=== PATIENT | female | born 1940 | race Caucasian/White ===

== ENCOUNTER → 2017-04-06 | Outpatient (CLI) | payer MEDICARE ==
--- NOTE | 2017-04-06 22:03 | KCIC ---
Bilateral digital screening mammograms: Reason for examination: Routine screening. Comparison is made to previous studies dating back to 11/22/2013. The skin and nipples show no abnormalities. No abnormal axillary lymph nodes are seen. The breast parenchyma shows scattered fibroglandular density. (Breast density: Category B.) There continue to be multiple small nodular densities bilaterally which show no definite change. There are no new dominant masses, suspicious calcifications or architectural distortions. Impression: No evidence of malignancy. Recommend routine screening. BI-RADS Category 2: Benign. "Our facility is accredited by the [employer] Mammography Program." This patient's information has been entered into a reminder system for the patient to be notified with the results of her examination and a target date for the next mammogram. Electronically signed by: Kailyn Choudhary MD (04/06/2017 10:00 PM)
== END | disposition home or self-care (01) ==
LOC: KCIC MAMMO 10:20
PROVIDERS: ATTEND Internal Medicine
DX: Z12.31 Encounter for screening mammogram for malignant neoplasm of breast (principal)
CPT/HCPCS: G0202; 77067

== ENCOUNTER → 2018-02-23 | Outpatient (CLI) | payer MEDICARE | END | disposition home or self-care (01) | LOC: KCIC CT 12:32 | DX: J32.4 Chronic pansinusitis (principal); J34.2 Deviated nasal septum | CPT/HCPCS: 70486 ==

== ENCOUNTER → 2018-03-28 | Outpatient (CLI) | payer MEDICARE ==
[2018-03-28 10:18] LABS: ISTAT CREATININE 0.6 mg/dL (0.6-1.1)
[2018-03-28] MEDS: GADOBUTROL 7.5 MMOL/7.5 ML VIAL IV (10:18)
== END | disposition home or self-care (01) ==
LOC: KCIC MRI 09:21
DX: R93.8 Abnormal findings on diagnostic imaging of other specified body structures (principal)
CPT/HCPCS: 70553; 82565; A9585

== ENCOUNTER → 2019-09-25 | Outpatient (CLI) | payer MEDICARE ==
[~2019-09-25] MED LIST: AMLO5TAB10 PO; LISI-334 PO; OMEP-229 PO; PARO20TA3 PO; SIMV20TA18 PO
--- NOTE | 2019-09-25 16:39 | KCIC ---
Bilateral digital screening mammograms with 3-D tomosynthesis: Reason for examination: Routine screening. Comparison is made to previous studies dated 05/06/2017 and 10/12/2016. Bilateral mammograms in CC and oblique projections were obtained with 2-D imaging and 3-D tomosynthesis imaging on a Siemens Inspiration unit and reviewed on the workstation. Interpretation was made with the benefit of CAD. The skin and nipples show no abnormalities. No abnormal axillary lymph nodes are seen. The breast parenchyma shows scattered fatty and fibroglandular density. (Breast density: Category B.) There continue to be nodular densities in the retroareolar 6:00 a position of the left breast, in the 2:00 B position of the left breast, in the 10:00 C position of the right breast and in the retroareolar 9:00 position of the right breast which are stable. There are no new dominant masses, suspicious calcifications or architectural distortion. Benign calcifications are present. Impression: No evidence of malignancy. Recommend routine screening. BI-RAD Category 2: Benign. "Our facility is accredited by the [employer] Mammography Program." This patient's information has been entered into a reminder system for the patient to be notified with the results of her examination and a target date for the next mammogram. Electronically signed by: Kailyn Choudhary MD (09/25/2019 4:36 PM) [facility]
--- NOTE | 2019-09-26 14:46 | KCIC ---
Bone densitometry - lumbar spine: L1-L4. 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 Dual energy x-ray absorptiometry of the lumbar spine, reveals a bone mineral density of 1.001 gm/cm2. This value is 0.4 standard deviations below the expected young adult normal value (T-score = -0.4 ). At this bone density level, fracture risk is not increased. Bone Densitometry - Hip: Left. Dual energy x-ray absorptiometry of the left femoral neck reveals a bone mineral density of 0.943 gm/cm2. This value is 0 standard deviations above or below the expected young adult normal value (T-score = 0.0 ). At this bone density level, fracture risk is not increased. Impression: 1. Normal bone mineral density of the lumbar spine and hip. Note: Definitions established by the World Health Organization: 1. Normal: T-score is -1.0 or above. 2. Osteopenia: T-score is between -1.0 and -2.5. 3. Osteoporosis: T-score is -2.5 or below. Electronically signed by: Dagoberto Yoo MD (09/26/2019 2:43 PM) [facility]
== END | disposition home or self-care (01) ==
LOC: KCIC DEXA 10:02
PROVIDERS: ATTEND Internal Medicine
DX: Z12.31 Encounter for screening mammogram for malignant neoplasm of breast (principal); E28.39 Other primary ovarian failure; Z78.0 Asymptomatic menopausal state
CPT/HCPCS: 77063; 77067; 77080

== ENCOUNTER → 2020-07-04 | Outpatient (CLI) | payer MEDICARE ==
[~2020-07-04] MED LIST changes: -OMEP-229 PO; +OMEP20CA16 PO
--- NOTE | 2020-07-04 16:35 | RAD ---
EXAM: Triple phase bone scintigraphy. HISTORY: Left knee pain after arthroplasty. FINDINGS: 27 mCi Tc-99m MDP was administered intravenously. Scintigraphic images of the knees were obtained in angiographic, immediate and delayed phases. No plain radiographs are available for comparison. Angiographic images demonstrate symmetric perfusion. Blood pool images demonstrate mild hyperemia about the right greater than left arthroplasties. Delayed images demonstrate increased uptake along the left patella. Uptake along the tibial and patellofemoral compartments are mild. There is increased uptake along the right femoral greater than tibial components. Images of the hips demonstrate a photopenic defect at the right hip consistent with an arthroplasty. There is no abnormal uptake about the arthroplasty. IMPRESSION: 1. Relatively intense uptake about the left patellar and right femoral/tibial components on the delayed images only. No hyperemia to suggest infection. Correlate with plain radiographs to assess for stress lesions or loosening. Electronically signed by: Mann Garcia MD (07/04/2020 4:32 PM) [facility]
== END | disposition home or self-care (01) ==
LOC: NM 11:25
PROVIDERS: ATTEND Orthopaedic Surgery
DX: M16.12 Unilateral primary osteoarthritis, left hip (principal); Z96.652 Presence of left artificial knee joint
CPT/HCPCS: 78315; A9503

== ENCOUNTER → 2020-10-21 | Outpatient (CLI) | payer MEDICARE ==
[~2020-10-21] MED LIST changes: +AMLO-186 PO; -AMLO5TAB10 PO; -LISI-334 PO; +LISI20TA18 PO
--- NOTE | 2020-10-21 17:11 | KCIC ---
Bilateral digital screening mammograms and tomosynthesis Reason for examination: Routine screening.History of benign left breast biopsies. Family history of b reast cancer of an aunt. Comparison is made to previous study dated mammogram September 25, 2019 and priors Routine CC and MLO digital views obtained. Interpretation was made with the benefit of CAD. The skin and nipples show no abnormalities. No abnormal axillary lymph nodes are seen. The breast par enchyma is heterogeneously dense. (Breast density: Category C.) There are no suspicious masses, suspi cious calcifications or architectural distortion. Nodular glandular asymmetries of both breasts as we ll as densities presumably from fibrocystic lesions stable to prior mammography and sonography for se veral years considered benign. Benign calcifications. Impression: Negative mammogram. Recommend routine screening. ?Your patient's mammogram demonstrates that she has dense breast tissue (breast density category C or D), which could hide abnormalities, and if she has other risk factors for breast cancer that have be en identified, she might benefit from supplemental screening tests that may be suggested by you as he r ordering physician. Dense breast tissue, in and of itself, is a relatively common condition. Theref ore, this information is not provided to cause undue concern, but rather to raise your awareness and to promote discussion with your patient regarding the presence of other risk factors, in addition to dense breast tissue. Your patient's mammography results will be sent to her. BI-RAD Category 2: Benign. "Our facility is accredited by the [employer] Mammography [employer]." This patient's information has been entered into a reminder system for the patient to be notified wit h the results of her examination and a target date for the next mammogram. Electronically signed by: Jesus Bustos MD (10/21/2020 5:09 PM) [email or web address]
== END ==
LOC: KCIC MAMMO 12:25
PROVIDERS: ATTEND Internal Medicine
DX: Z12.31 Encounter for screening mammogram for malignant neoplasm of breast (principal)
CPT/HCPCS: 77063; 77067

== ENCOUNTER → 2020-10-28 | Outpatient (CLI) | payer MEDICARE ==
[~2020-10-28] MED LIST changes: +LISI-334 PO; -LISI20TA18 PO
--- NOTE | 2020-10-28 14:25 | RAD ---
BILATERAL DUPLEX CAROTID SONOGRAPHY History: Reason: TIA; HTN; Episode of confusion and unsteay gait per patient COMPARISON: MR brain with and without contrast March 28, 2018. Technique: Duplex sonography of the cervical portion of both carotid arteries was performed. Real-brandy e grayscale, color flow Doppler, and Doppler spectral waveform analysis is performed. Findings: Right side: Peak systolic flow velocity of the CCA is 65 cm/sec. Peak systolic flow velocity of the ICA is 110 cm/sec. The ICA/CCA ratio is 1.7. Peak end diastolic flow velocity of the ICA is 19 cm/sec. The peak systolic velocity of the ECA is 89 cm/sec. There is echogenic plaque in the proximal right ICA. Left side: Peak systolic flow velocity of the CCA is 83 cm/sec. There is a dampened waveform in the proximal right ICA. The mid and distal ICA is occluded. Finding m ay be chronic as left ICA flow void was abnormal on prior MR brain. Peak systolic flow velocity of the ECA is 86 cm/sec. Vertebral arteries: Bilateral vertebral arteries demonstrate antegrade flow. IMPRESSION: 1. 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 2. No hemodynamically significant right internal carotid artery stenosis is identified. PQRS Compliance Statement - Stenosis calculations for CT, MR and conventional angiography are based u gage measurement of the distal ICA diameter in accordance with the NASCET methodology. Stenosis calcu lations for carotid ultrasound studies are derived from validated velocity criteria which are known t o correlate with the NASCET methodology. Electronically signed by: Chencho Harper MD (10/28/2020 2:23 PM) [id number]
--- NOTE | 2020-10-29 07:56 | CARD ---
MR#: [id number] Date of Study: 10/28/2020 Ordering Physician: ERNI AIKEN, Referring Physician: ERIN AIKEN, Tech: Paula Jordan APPROVED REPORT EXAM: Two-dimensional and M-mode echocardiogram with Doppler and color Doppler. Other Information Quality : AverageHR: 74bpm INDICATION Hypertension/HCVD RISK FACTORS Hyperlipidemia 2D DIMENSIONS RVDd3.2 (2.9-3.5cm)Left Atrium(2D)3.7 (1.6-4.0cm) IVSd1.1 (0.7-1.1cm)Aortic Root(2D)3.1 (2.0-3.7cm) LVDd4.8 (3.9-5.9cm)LVOT Diameter2.0 (1.8-2.4cm) PWd1.1 (0.7-1.1cm)LVDs2.8 (2.5-4.0cm) Aortic Valve AoV Peak Amilcar.133.8cm/sAoV VTI26.1cm AO Peak GR.7.2mmHgLVOT Peak Amilcar.124.9cm/s LVOT VTI 24.28cmAO Mean GR.4mmHg ANGELINA (VMAX)2.77ef3WKD (VTI)2.91cm2 Mitral Valve MV E Gtminfxt07.4cm/sMV DECEL [id number] MV A Acqfavrg05.2cm/sMV [id number] E/A Ratio0.6MVA (PHT)1.92cm2 TDI E/Lateral E'5.6E/Medial E'7.8 Pulmonary Valve PV Peak Tzxlovbq86.3cm/sPV Peak Grad.4mmHg Tricuspid Valve TR P. Ufjhtfql038cy/sRAP KWIMOOAL9gaTo TR Peak Gr.36tiWoFUZH55jkQl Pulmonary Vein S1 Ngeadger68.4cm/sD2 Hlnzcing80.7cm/s PVa [id number] LEFT VENTRICLE The left ventricle is normal size. There is borderline to mild concentric left ventricular hypertroph y. The left ventricular systolic function is normal and the ejection fraction is within normal range. The Ejection Fraction is 55-60%. There is normal LV segmental wall motion. Transmitral Doppler flow pattern is Grade I-abnormal relaxation pattern. RIGHT VENTRICLE The right ventricle is normal size. There is normal right ventricular wall thickness. The right ventr icular systolic function is normal. ATRIA The left atrium size is normal. The right atrium size is normal. The interatrial septum is intact wit h no evidence for an atrial septal defect or patent foramen ovale as noted on 2-D or Doppler imaging. AORTIC VALVE The aortic valve is thickened but opens well. Doppler and Color Flow revealed no significant aortic r egurgitation. There is no significant aortic valvular stenosis. Calculated aortic valve area is 3.46 cm2 with maximum pressure gradient of 8 mmHg and mean pressure gradient of 4 mmHg. MITRAL VALVE The mitral valve is normal in structure and function. There is no evidence of mitral valve prolapse. There is no mitral valve stenosis. Doppler and Color-flow revealed trace mitral regurgitation. TRICUSPID VALVE The tricuspid valve is normal in structure and function. Doppler and Color Flow revealed trace tricus pid regurgitation with an estimated PAP of 33 mmHg. There is no tricuspid valve stenosis. PULMONIC VALVE The pulmonic valve is not well visualized. Doppler and Color Flow revealed no pulmonic valvular regur gitation. There is no pulmonic valvular stenosis. GREAT VESSELS The aortic root is normal in size. The ascending aorta is Mildly dilated measuring 3.7 cm. The IVC is normal in size and collapses >50% with inspiration. PERICARDIAL EFFUSION There is no evidence of significant pericardial effusion. Critical Notification Critical Value: No <Conclusion> The left ventricular systolic function is normal and the ejection fraction is within normal range. Th e Ejection Fraction is 55-60%. There is normal LV segmental wall motion. The ascending aorta is Mildly dilated measuring 3.7 cm. Signed by : Sven Young, Electronically Approved : 10/29/2020 07:55:53
== END ==
LOC: US 12:15
PROVIDERS: ATTEND Internal Medicine
DX: I65.23 Occlusion and stenosis of bilateral carotid arteries (principal); I11.9 Hypertensive heart disease without heart failure; I35.8 Other nonrheumatic aortic valve disorders; Z86.73 Personal history of transient ischemic attack (TIA), and cerebral infarction without residual deficits
CPT/HCPCS: 93306; 93880

== ENCOUNTER → 2020-12-18 | Outpatient (CLI) | payer MEDICARE ==
[~2020-12-18] MED LIST changes: -LISI-334 PO; +LISI20TA18 PO
--- NOTE | 2020-12-19 09:00 | KCIC ---
EXAM: Thyroid Ultrasound INDICATION: Reason: Left Thyroid Nodule / Spl. Instructions: / History: ? TECHNIQUE: Real-time ultrasound of the thyroid was performed with permanent freeze-frame documentatio n. COMPARISON: None available ? FINDINGS: THYROID: Thyroid gland is enlarged and heterogeneous in echogenicity. ? Right Lobe: 4.5 x 1.2 x 2.2 cm. The right thyroid lobe shows multiple 5 mm nodules that are hypoechoic however there is a 6 mm nodule in the posterior right thyroid lobe (image 12 of 44 and series 1) that appears to have echogenic foc i. It is considered solid (2), hypoechoic (2), wider than tall (0), has ill-defined margins (0) and e chogenic foci (3) for a TI RADS point total of 7, for a TI RADS score of 5, highly suspicious. ? Left Lobe: 7.1 x 4.0 x 4.3 cm. Left thyroid lobe contains 3 nodules. In the medial mid thyroid lobe, a 1.2 x 0.8 x 0.7 cm cyst with layering echogenic debris is noted, be nign. In the more lateral mid thyroid lobe, a solid (2) circumscribed isoechoic (1) 4.5 x 4.6 x 2.8 cm nodu le is present. With smooth margins, no echogenic foci, and wider than tall morphology, it has a total points score o f 3 for a TI-RADS 3 score, moderately suspicious. In the inferior and lateral left thyroid lobe, a 5.3 x 5.5 x 6.3 cm nodule is present. Like the later al mid thyroid lobe nodule, it has a points total of 3 and a TI RADS score of 3, moderately suspiciou s. ? Isthmus: 0.2 cm. ? ? OTHER: No evidence of adjacent cervical adenopathy. ? IMPRESSION: 1. Based on TI-RADS scoring criteria utilized here, patient has a suspicious 6 mm posterior right thy roid lobe nodule that is recommended for annual follow-up to document 5 years of stability or until i t is a centimeter in size at which point fine-needle aspiration biopsy is recommended. 2. Patient also has 2 solid thyroid nodules adjacent to one another in the left thyroid lobe, each wi th a TI RADS score of 3, mildly suspicious. Since they are both greater than 2.5 cm in size, fine-nee dle aspiration biopsy is recommended on each one. Electronically signed by: Tanja Monroy MD (12/19/2020 8:58 AM) [id number]
== END ==
LOC: KCIC US 12:47
PROVIDERS: ATTEND Internal Medicine
DX: E04.2 Nontoxic multinodular goiter (principal)
CPT/HCPCS: 76536

== ENCOUNTER → 2020-12-30 | Outpatient (CLI) | payer MEDICARE ==
[~2020-12-30] MED LIST changes: +LIDOCAINE 1% Multi-Dose 20 ML VIAL. INJ ONE
--- NOTE | 2020-12-30 11:55 | RAD ---
ADDENDUM #1 Addendum: Pathology results from FNA biopsy of the mid left thyroid lobe nodule showed a follicular lesion of u ndetermined significance with abundant follicular cells, differential diagnosis including cellular ad enomatoid nodule and follicular neoplasm. Comment is made that cellular aspirate with follicular cell s with Perthes cells changes and some atypia. The retained vial will be sent for molecular testing. O verall diagnosis is therefore currently inconclusive. Pathology results from FNA biopsy of the inferior left thyroid lobe nodule showed cellular aspirate w ith numerous Hurthe cells with moderate atypia, differential diagnosis including Hurthe cell adenomat oid nodule and Hurthe cell neoplasm. The retained vial will be sent for molecular testing. Overall diagnosis is therefore currently inconclusive. Electronically signed by: Tanja Mnoroy MD (01/06/2021 5:40 PM) [id number] ORIGINAL REPORT EXAM: ULTRASOUND-GUIDED THYROID FINE-NEEDLE ASPIRATION. HISTORY: Left inferior thyroid nodule. Ultrasound-guided biopsy is requested. FINDINGS: The procedure along with its risks and benefits were explained to the patient. They agreed to proceed. A timeout procedure was performed. Sonographic images of the thyroid gland were obtained. The solid target nodule in the inferior left t hyroid was adequately visualized for biopsy. The overlying skin was sterilely prepped and infiltrated with 1% lidocaine for local anesthesia. Unde r ultrasound guidance, 4 aspirates were obtained using 25-gauge needles. These were hand delivered to pathology who determined them adequate for diagnosis. A sterile dressing was placed. There were no i mmediate complications. IMPRESSION: 1. Successful ultrasound-guided fine-needle aspiration of the left inferior thyroid nodule. EXAM: ULTRASOUND-GUIDED THYROID FINE-NEEDLE ASPIRATION. HISTORY: Left mid thyroid nodule. Ultrasound-guided biopsy is requested. FINDINGS: The procedure along with its risks and benefits were explained to the patient. They agreed to proceed. A timeout procedure was performed. Sonographic images of the thyroid gland were obtained. The solid target nodule in the lateral mid thy roid lobe was adequately visualized for biopsy. The overlying skin was sterilely prepped and infiltrated with 1% lidocaine for local anesthesia. Unde r ultrasound guidance, 4 aspirates were obtained using 25-gauge needles. These were hand delivered to pathology who determined them adequate for diagnosis. A sterile dressing was placed. There were no i mmediate complications. IMPRESSION: 1. Successful ultrasound-guided fine-needle aspiration of the lateral mid left thyroid nodule. Electronically signed by: Tanja Monroy MD (12/30/2020 11:52 AM) [id number]
--- NOTE | 2021-01-01 15:08 | PATHOLOGY ---
Note [facility] Accession Number: [id number] TESTS RESULT FLAG UNITS REF RANGE LAB Clinician Provided Cytology Information No. of containers..01 Other (Miscellaneous) Source: MID THYROID DIAGNOSIS: MID THYROID INCONCLUSIVE. BETHESDA CATEGORY III. FOLLICULAR LESION OF UNDETERMINED SIGNIFICANCE. SPECIMEN CONSISTS OF ABUNDANT FOLLICULAR CELLS WITH SCANT COLLOID. THE DIFFERENTIAL DIAGNOSIS INCLUDES CELLULAR ADENOMATOID NODULE AND FOLLICULAR NEOPLASM. RED BLOOD CELLS ARE PRESENT. THIS INTERPRETATION INCLUDES EVALUATION OF A CELL BLOCK. COMMENT, CELLULAR ASPIRATE WITH FOLLICULAR CELLS WITH HURTHLE CELL CHANGES AND SOME ATYPIA. THE RETRAIN VIAL WILL BE SENT FOR MOLECULAR TESTING THIS CASE WAS ALSO REVIEWED BY DR. HARISH RUIZ ON 01/01/2021 AT 2PM SHE AGREES WITH THE ABOVE DIAGNOSIS. Pathologist ICD10: 01 R89.6 Signed out by: Buddy Gonzalez MD, Pathologist NPI- [id number] Performed by: Mikayla Chavira, Jig And Fixture Builder ([facility]) Gross description: 01 30ML, CLEAR RED, 2FX 2AD 2H /LCS 12/30/2020 1746 Local FLAG LEGEND: L-Low Normal,H-High Normal,LL-Alert Low,HH-Alert High <-Panic Low,>-Panic High,A-Abnormal,AA-Critical Abnormal Performed at: [facility] [address] [place] [address] Buddy Gonzalez MD, Specimen Comment: [id number] Specimen Comment: A duplicate report has been generated due to demographic updates. Performed at: [address], [place], [place] [id number] MD Budyd Gonzalez MD Phone: [phone]
--- NOTE | 2021-01-01 15:08 | PATHOLOGY ---
Note [facility] Accession Number: [id number] TESTS RESULT FLAG UNITS REF RANGE LAB Clinician Provided Cytology Information No. of containers..01 Other (Miscellaneous) Source: LT INFERIOR THYROID DIAGNOSIS: LT INFERIOR THYROID INCONCLUSIVE. BETHESDA CATEGORY III. ATYPIA OF UNDETERMINED SIGNIFICANCE. THIS INTERPRETATION INCLUDES EVALUATION OF A CELL BLOCK. COMMENT, CELLULAR ASPIRATE WITH NUMEROUS HURTHLE CELLS WITH MODERATE ATYPIA. THE DIFFERENTIAL INCLUDES HURTHLE CELL ADENOMATOID NODULE AND HURTHLE CELL NEOPLASM. THE RETAIN VIAL WILL BE SENT FOR MOLECULAR TESTING THIS CASE WAS ALSO REVIEWED BY DR. HARISH RUIZ ON 01/01/21 AT 2PM SHE AGREES WITH THE ABOVE DIAGNOSIS Pathologist ICD10: 02 R89.6 Diagnosis provided b Buddy Gonzalez MD, Pathologist NPI- [id number] Signed out by: Buddy Gonzalez MD, Pathologist NPI- [id number] Performed by: Mikayla Chavira, Application Performance Engineer ([facility]) Gross description: 01 30ML, CLEAR RED, 2FX 2AD 2H /LCS 12/30/2020 1745 Local FLAG LEGEND: L-Low Normal,H-High Normal,LL-Alert Low,HH-Alert High <-Panic Low,>-Panic High,A-Abnormal,AA-Critical Abnormal Performed at: [email or web address] [address] [place] [address] Buddy Gonzalez MD, [address] [place] [address] [facility] [address] [address] Joana Duran MD, Specimen Comment: A courtesy copy of this report has been sent to [phone], [phone] Specimen Comment: [id number] Specimen Comment: Report sent to / DR AIKEN Specimen Comment: A duplicate report has been generated due to demographic updates. Performed at: [address], [place], [place] [id number] MD Buddy Gonzalez MD Phone: [phone]
== END | disposition home or self-care (01) ==
LOC: US 09:03
PROVIDERS: ATTEND Internal Medicine
DX: E04.1 Nontoxic single thyroid nodule (principal); R89.6 Abnormal cytological findings in specimens from other organs, systems and tissues; Z79.899 Other long term (current) drug therapy; Z88.0 Allergy status to penicillin
CPT/HCPCS: 10005; 10006; 60300; 76942; 88173; 88305

== ENCOUNTER → 2021-01-21 | Outpatient (CLI) | payer MEDICARE ==
[~2021-01-21] MED LIST changes: -LIDOCAINE 1% Multi-Dose 20 ML VIAL. INJ ONE
--- NOTE | 2021-01-21 14:07 | KCIC ---
Examination: Ultrasound left parotid HISTORY: History of mass in the left parotid COMPARISON: None available. Findings/ impression: Ultrasound of the left parotid demonstrates no definite evidence of mass or lesion. Electronically signed by: Darell Turcios MD (01/21/2021 2:04 PM) [id number]
== END ==
LOC: KCIC US 11:01
PROVIDERS: ATTEND Internal Medicine
DX: R93.1 Abnormal findings on diagnostic imaging of heart and coronary circulation (principal)
CPT/HCPCS: 76881